=== PATIENT | male | born 1955 | race Caucasian/White ===

== ENCOUNTER 2020-04-19 20:36 | Emergency (ER) | payer OTHER ==
[2020-04-19 21:03] VITALS: TEMP 98.9; BMI 35.2
[2020-04-19 21:34] LABS: BASO % 0.7 % (0-2.0); EOS % 1.3 % (0-4.5); HEMATOCRIT 39.9 % (35.4-49); HEMOGLOBIN 13.4 GM/dL (11.7-16.9); LYMPH % 15.4 % (8-40); MCH 28.3 pg (25.7-33.7); MCHC 33.6 g/dl (32.0-35.9); MEAN CELL VOLUME 84.3 fl (80-96); MEAN PLT VOLUME 9.2 fl (7.5-11.1); MONO % 7.1 % (3.8-10.2); NEUT % 75.5 % (42.8-82.8); PLATELET COUNT 217 K/MM3 (134-434); RBC 4.73 M/mm3 (4.00-5.60); WHITE BLOOD COUNT 9.7 K/mm3 (4.0-10.0)
[2020-04-19 21:52] LABS: CHLORIDE 104 mmol/L (98-107); SODIUM 138 mmol/L (136-145)
[2020-04-19 21:54] LABS: CALCIUM 8.6 mg/dL (8.5-10.1)
[2020-04-19 21:55] LABS: ALBUMIN 3.9 g/dl (3.4-5.0); ANION GAP 7 MMOL/L (8-16); BLOOD UREA NITROGEN 27.1 mg/dL (7-18); CO2 28 mmol/L (21-32); GLUCOSE,RANDOM 161 mg/dL (74-106); MAGNESIUM 2.1 mg/dL (1.8-2.4)
[2020-04-19 21:58] LABS: CREATININE 1.3 mg/dL (0.55-1.3); SGOT/AST 19 U/L (15-37); SGPT/ALT 27 U/L (13-61)
[2020-04-19 22:00] LABS: BILIRUBIN,TOTAL 0.1 mg/dL (0.2-1); TOT PROT 7.5 g/dl (6.4-8.2)
[2020-04-19 22:01] LABS: ALK PHOS 73 U/L (45-117)
[2020-04-19 22:57] VITALS: BP 125/70; PULSE 83
== END 2020-04-19 22:58 | disposition home or self-care (01) ==
LOC: JER 20:36
DX: R00.2 Palpitations (principal)
CPT/HCPCS: 36415; 80053; 82550; 82553; 83735; 84484; 85025; 93005; 93010; 99284-25

== ENCOUNTER 2022-05-12 22:09 | Emergency (ER) | payer OTHER ==
[2022-05-12 22:17] VITALS: TEMP 97.8; BMI 30.2
[2022-05-12] MEDS ORDERED: METOPROLOL TARTRATE 5 MG/5 ML VIAL IVPUSH ONE (23:04)
[2022-05-12] MEDS ORDERED: METOPROLOL TARTRATE 5 MG/5 ML VIAL ONE (23:06)
[2022-05-12 23:21] VITALS: BP 130/94; PULSE 90; RESP 18
[2022-05-12 23:33] LABS: BASO % 0.9 % (0-2.0); EOS % 2.3 % (0-4.5); HEMATOCRIT 41.3 % (35.4-49); HEMOGLOBIN 13.9 GM/dL (11.7-16.9); LYMPH % 22.3 % (8-40); MCH 27.1 pg (25.7-33.7); MCHC 33.7 g/dl (32.0-35.9); MEAN CELL VOLUME 80.2 fl (80-96); MEAN PLT VOLUME 7.9 fl (7.5-11.1); MONO % 12.3 % (3.8-10.2); NEUT % 62.2 % (42.8-82.8); PLATELET COUNT 240 10^3/uL (134-434); RBC 5.15 M/mm3 (4.00-5.60); RDW 14.2 % (11.9-15.9); WHITE BLOOD COUNT 6.7 K/mm3 (4.0-10.0)
[2022-05-12 23:56] LABS: ALBUMIN 3.8 g/dl (3.4-5.0); BLOOD UREA NITROGEN 31.3 mg/dL (7-18)
[2022-05-12 23:59] LABS: CREATININE 1.2 mg/dL (0.55-1.3)
[2022-05-13 00:01] LABS: BILIRUBIN,TOTAL 0.2 mg/dL (0.2-1); TOT PROT 7.7 g/dl (6.4-8.2)
== END 2022-05-13 00:28 | disposition home or self-care (01) ==
LOC: JER 22:09
DX: R00.2 Palpitations (principal); I10 Essential (primary) hypertension
CPT/HCPCS: 36415; 71046-TC-FY; 80053; 84484; 85025; 93005; 93010; 99285-25